=== PATIENT | female | born 1930 | race Hispanic/Latino ===

== ENCOUNTER 2018-03-29 15:07 | Emergency (ER) | payer OTHER ==
[~2018-03-29] VITALS: Ht 152.4 cm; Wt 73.5 kg
[~2018-03-29 15:07] MED LIST: AMLODIPINE BES2.5 MG PO; GEMFIBROZIL600 MG PO; LISINOPRIL40 MG PO; SIMVASTATIN10 MG PO
--- OUTSIDE RECORDS SUMMARY | 2018-03-29 15:10 | XMS REPORT ---
Author Author [facility] Address Unknown Phone Unavailable Care Team Providers Care Regulatory Services Consultant Name Role Phone UNKNOWN, REFFERING PP Unavailable TOBI GUARDADO III, M.D. Unavailable Unavailable Problems This patient has no known problems. Allergies, Adverse Reactions, Alerts This patient has no known allergies or adverse reactions. Medications This patient has no known medications. Encounters Start Date/Time End Date/Time Encounter Type Admission Type Attending Clinicians Care Facility Care Department Encounter ID 2017-07-05 09:55:00 2017-07-05 09:55:00 Outpatient C TOBI GUARDADO III, M.D. [facility] [id number]
== END 2018-03-29 19:15 | disposition home or self-care (01) ==
LOC: ER 15:07
DX: I10 Essential (primary) hypertension (principal)
CPT/HCPCS: 93005; 99282